=== PATIENT | male | born 1950 | race Caucasian/White ===

== ENCOUNTER 2021-03-08 06:27 | Day surgery (SDC) | payer MEDICARE, OTHER ==
[2021-03-03 12:19] LABS: CLARITY,URINE CLOUDY (Clear); COLOR,URINE YELLOW (Yellow); GLUCOSE, URINE NEGATIVE (Neg); KETONES,URINE NEGATIVE (Neg); LEUKOCYTE ESTERASE ,URINE LARGE (Neg); NITRITES, URINE POSITIVE (Neg); OCCULT BLOOD,URINE LARGE (Neg); PH,URINE 6.5 (4.8-8.0); PROTEIN,URINE 30 mg/dl (Neg); UROBILINOGEN,URINE 0.2 E.U/dL (0.2-1.0)
[2021-03-03 12:19] LABS: BASOPHILS % (AUTO) 0.2 % (0-1); EOSINOPHILS # (AUTO) 0.1 X10'3 (0-0.9); EOSINOPHILS % (AUTO) 0.4 % (0-6); LYMPHOCYTES # (AUTO) 0.9 X10'3 (1.1-4.8); MEAN CORPUSCULAR HGB CONC 33.6 g/dL (33.0-36.5); MEAN CORPUSCULAR VOLUME 92.1 FL (78-98); MEAN PLATELET VOLUME 7.9 FL (7.4-10.4); MONOCYTES # (AUTO) 1.1 X10'3 (0-0.9); MONOCYTES % (AUTO) 8.4 % (2-12); NEUTROPHILS # (AUTO) 11.3 X10'3 (1.8-7.7); PRE OP HEMATOCRIT 49.5 % (42.0-52.0); PRE OP HEMOGLOBIN 16.6 g/dL (14.0-17.9); PRE OP PLATELET COUNT 216 X10'3 (140-440); RED BLOOD COUNT 5.38 X10'6 (4.70-6.10); RED CELL DISTRIBUTION WIDTH 16.7 % (11.5-14.5)
[2021-03-03 12:23] LABS: UA COLLECTION TYPE NON-SPECIFIED
[2021-03-03 12:25] LABS: BACTERIA,URINE 3+ /HPF (Neg); MUCUS STRANDS FEW /LPF (Neg); SQUAMOUS EPITHELIAL CELL,UR FEW /LPF (FEW); WBC,URINE TNTC /HPF (0-4)
[2021-03-03 12:39] LABS: ALBUMIN 4.1 G/DL (3.4-5.0); ALKALINE PHOSPHATASE 86 IU/L (46-116); BLOOD UREA NITROGEN 21 MG/DL (7-18); BUN/CREATININE RATIO 16.9 (5.4-32.0); CALCIUM 9.7 MG/DL (8.5-10.1); CHLORIDE 98 MMOL/L (99-107); CREATININE 1.24 MG/DL (0.60-1.10); PRE OP ALT 36 U/L (30-65); PRE OP ANION GAP 14 (8-16); PRE OP AST 26 U/L (10-37); PRE OP BILIRUB, TOTAL 1.1 MG/DL (0.0-1.0); PRE OP GLUCOSE 101 MG/DL (70-104); PRE OP POTASSIUM 3.6 MMOL/L (3.4-5.1); PRE OP SODIUM 137 MMOL/L (135-145); TOTAL CARBON DIOXIDE 25.5 MMOL/L (24-32); TOTAL PROTEIN 8.4 G/DL (6.4-8.2); eGFR 57 ML/MIN
[~2021-03-08] VITALS: Ht 167.6 cm; Wt 70.0 kg
[2021-03-08] VITALS (10 sets, daily range): BP systolic 122–168; BP diastolic 74–90
[~2021-03-08 06:27] MED LIST: AMLO5TAB4 PO; ASPI-1265 PO; CHOL20004 PO; GLUC-150 PO; LISI-640 PO; METH1TAB29 PO; MULT-1141 PO; cefazolin/dext.iso 2gm/100ml IV ONE; famotidine 20mg tablet PO ONE; ringers solution, lacted 1,000 ML IV SCH
[2021-03-08] MEDS ORDERED: BUPIVAcaine/PF 2.5 mg/ml (0.25%) 30ml vial ONE (07:16)
[2021-03-08] MEDS ORDERED: morphine 4 MG/ML inj SYRINge IV PRN (10:25)
[2021-03-08] MEDS ORDERED: ondansetron/PF 4mg/2ml inj IV PRN (10:25)
[2021-03-08] MEDS ORDERED: labetalol 20mg/4ml (5mg/ml) syringe IV PRN (10:25)
[2021-03-08] MEDS ORDERED: hydrALAZINE 20mg/ml inj. IV PRN (10:25)
[2021-03-08] MEDS ORDERED: fentaNYL/PF 50MCG/1 ML 2ML syringe IV PRN (10:25)
[2021-03-08] MEDS ORDERED: ringers solution, lacted 1,000 ML IV SCH (10:25)
[2021-03-08] MEDS ORDERED: morphine 2 MG/ML inj. syringe IV PRN (10:25)
[2021-03-08] MEDS ORDERED: midazolam 1 mg/ML 2ml injection ONE (10:34)
[2021-03-08] MEDS ORDERED: fentaNYL/PF 50MCG/1 ML 2ML syringe ONE (10:34)
[2021-03-08] MEDS ORDERED: rocuronium 10mg/ml inj IV ONE (10:36)
[2021-03-08] MEDS ORDERED: LIDOcaine 2% (20mg/ml) 5ml vial ONE (10:36)
[2021-03-08] MEDS ORDERED: propofol inj 20 ML IV ONE (10:36)
[2021-03-08] MEDS ORDERED: neostigmine methylsulfate 1 MG/ML 10ml vial ONE (10:52)
[2021-03-08] MEDS ORDERED: ondansetron/PF 4mg/2ml inj ONE (10:52)
[2021-03-08] MEDS ORDERED: dexamethasone sod phosphate 4mg/ml inj. ONE (10:52)
[2021-03-08] MEDS ORDERED: glycopyrrolate 0.2mg/ml inj ONE (10:52)
--- NOTE | 2021-03-08 12:00 | NUR ---
Received from OR via , accompanied by Anesthesiologist and report given by Anesthesiolgist. PATIENT A&OX4, DENIES PAIN, V/S WNL, SCD ON , PIV 20G RUE, DERMABONDED LAPS SITES CLOSED CDI TO ABDOMEN. F/C DRAINING CLEAR YELLOW URINE.
[2021-03-08] MEDS: HYDROcodone/acetaminophen 10/325mg tab PO ONE ×2 (12:48→13:43)
[2021-03-08] MEDS: fentaNYL/PF 50MCG/1 ML 2ML syringe IV PRN ×2 (12:54→12:59)
[2021-03-08] MEDS ORDERED: HYDROcodone/acetaminophen 10/325mg tab PO ONE (13:45)
--- NOTE | 2021-03-08 14:00 | NUR ---
A&OX4, 01/07 PAIN, V/S WNL, SCD OFF , PIV 20G RUE D/C, DERMABONDED LAPS SITES CLOSED CDI TO ABDOMEN. F/C DRAINING CLEAR YELLOW URINE. I HAVE REVIEWED D/C INSTRUCTIONS WITH KATHIA AND HE HAS VERBALIZED UNDERSTANDING. PATIENT D/C HOME WITH ALL BELONGINGS AND DAUGHTER GAVE TRANSPORT HOME
== END 2021-03-08 14:00 | disposition home or self-care (01) ==
LOC: PAS 06:27
PROVIDERS: ATTEND Surgery
DX: K40.90 Unilateral inguinal hernia, without obstruction or gangrene, not specified as recurrent (principal); D17.6 Benign lipomatous neoplasm of spermatic cord; N40.0 Benign prostatic hyperplasia without lower urinary tract symptoms; I10 Essential (primary) hypertension; E55.9 Vitamin D deficiency, unspecified; G25.81 Restless legs syndrome; E03.9 Hypothyroidism, unspecified; G89.29 Other chronic pain; Z85.46 Personal history of malignant neoplasm of prostate; Z86.19 Personal history of other infectious and parasitic diseases; Z79.899 Other long term (current) drug therapy; Z88.8 Allergy status to other drugs, medicaments and biological substances; Z88.2 Allergy status to sulfonamides; Z87.891 Personal history of nicotine dependence
CPT/HCPCS: 36415; 49650; 80053; 81001; 82948; 85025; 87077; 87088; 87186; 93005; C1781; J1100; J2001; J2250; J2270; J2405; J2704; J2710; J3010; J3490; A4215; A4357; A4618; J7120